=== PATIENT | female | born 1950 | race Caucasian/White ===

== ENCOUNTER 2023-12-20 12:26 | Day surgery (SDC) | payer MEDICARE, SELFPAY ==
[2023-12-14 15:42] VITALS: BMI 25.5
[2023-12-20 14:16] VITALS: BP 124/85; PULSE 86; RESP 16; TEMP 36.1; O2SAT 99
[2023-12-20] MEDS: Lactated Ringers 1,000 ML 100 ML IVCONT (14:35)
--- NOTE | 2023-12-20 14:43 | ECG_ITS ---
Test Reason : preop, bbb Blood Pressure : / mmHG Vent. Rate : 084 BPM Atrial Rate : 084 BPM P-R Int : 174 ms QRS Dur : 146 ms QT Int : 412 ms P-R-T Axes : 040 -81 011 degrees QTc Int : 486 ms Normal sinus rhythm Left axis deviation Right bundle branch block Abnormal ECG No previous ECGs available Referred By: Rosita Alford Electronically Signed By:Thomas Fenton
--- NOTE | 2023-12-20 14:58 | PC.NURSE ---
EKG rhythm strip showing NSR with BBB, no previous history known per patient. 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 Dr. Alford anesthesiologist notified via [employer]. no old EKG to compare. 12 lead EKG ordered. results given to Dr. Alford. no new orders at this time.
--- NOTE | 2023-12-20 15:50 | PC.NURSE ---
patient moved to pacu bed 15 awaiting procedure. Report given to Chino Greco RN.
--- NOTE | 2023-12-20 16:50 | HO.ANESPROP2 ---
Documented by User: Cristy Lizama NP 12/19/23 13:54 HPI - Anesthesia Eval Consult details Narrative: 73yo F for Left Inferior Rectus Eye Muscle Recession,Right Inferior Oblique Medically optimized [facility] Past Medical History Medical History (Updated 12/14/23 @ 15:39 by Aviva Waters, RN) Osteoporosis HTN (hypertension) Surgical History Surgical History (Updated 12/14/23 @ 15:39 by Aviva Waters, [facility]) Hx of colonoscopy Hx of bilateral cataract extraction History of Social History Social History Are you a primary critical care transport nurse to a significant other at home: No Do you presently have visiting nurse or other home services: No Patient Tobacco Use Status: Never used Tobacco Use of substances other than those prescribed or required for medical reasons: No Have you been hit, kicked, punched, or otherwise hurt by someone within the past year? If so, by whom?: No Are you DNR?: No Advance Directives: No Advance Directives Information Provided: Yes Advance Directives on File: No Nutrition Risks: No Nutritional Risk Poor oral hygiene: No Meds Allergies Allergy/AdvReac Type Severity Reaction Status Date / Time No Known Allergies Allergy Verified 12/14/23 15:39 Home Medications ?Medication ?Instructions ?Recorded ?Confirmed ?Last Taken ?Type alendronate 70 mg tablet (Fosamax) 70 mg PO QWEEK 12/14/23 12/14/23 Unknown History calcium carbonate (Calcium 600) 1,200 mg PO DAILY 12/14/23 12/14/23 Unknown History cholecalciferol (vitamin D3) 50 50 mcg PO DAILY 12/14/23 12/14/23 Unknown History mcg (2,000 unit) capsule (Vitamin D3) losartan 25 mg tablet 25 mg PO DAILY 12/14/23 12/14/23 Unknown History multivitamin with minerals 1 tab PO DAILY 12/14/23 12/14/23 Unknown History (Hair,Skin and Nails tablet) Exam Height,Weight and Vital Signs: Height 5 ft 6 in Weight 71.668 kg Assessment and Plan Assessment Anesthesia Assessment: Chart Reviewed Documented by User: Rosita Alford, DO 12/20/23 17:10 HPI - Anesthesia Eval Consult details Narrative: 73yo F for Left Inferior Rectus Eye Muscle Recession,Right Inferior Oblique Medically optimized [facility] Past Medical History Medical History (Updated 12/14/23 @ 15:39 by Aviva Waters, RN) Osteoporosis HTN (hypertension) Family History Family history of problems with anesthesia: No Surgical History Surgical History (Updated 12/14/23 @ 15:39 by Aviva Waters, RN) Hx of colonoscopy Hx of bilateral cataract extraction History of History of Problems with Anesthesia: No Social History Social History Are you a primary critical care transport nurse to a significant other at home: No Do you presently have visiting nurse or other home services: No Patient Tobacco Use Status: Never used Tobacco Use of substances other than those prescribed or required for medical reasons: No Have you been hit, kicked, punched, or otherwise hurt by someone within the past year? If so, by whom?: No Are you DNR?: No Advance Directives: No Advance Directives Information Provided: Yes Advance Directives on File: No Nutrition Risks: No Nutritional Risk Poor oral hygiene: No Meds Allergies Allergy/AdvReac Type Severity Reaction Status Date / Time No Known Allergies Allergy Verified 12/14/23 15:39 Home Medications ?Medication ?Instructions ?Recorded ?Confirmed ?Last Taken ?Type alendronate 70 mg tablet (Fosamax) 70 mg PO QWEEK 12/14/23 12/14/23 Unknown History calcium carbonate (Calcium 600) 1,200 mg PO DAILY 12/14/23 12/14/23 Unknown History cholecalciferol (vitamin D3) 50 50 mcg PO DAILY 12/14/23 12/14/23 Unknown History mcg (2,000 unit) capsule (Vitamin D3) losartan 25 mg tablet 25 mg PO DAILY 12/14/23 12/14/23 Unknown History multivitamin with minerals 1 tab PO DAILY 12/14/23 12/14/23 Unknown History (Hair,Skin and Nails tablet) Exam Exam Date and Time: December 20, 2023 1650 Height,Weight and Vital Signs: Height 5 ft 6 in Weight 71.668 kg Vital Signs Temperature 97.0 F 12/20/23 14:16 Pulse Rate 86 12/20/23 14:16 Respiratory Rate 16 12/20/23 14:16 Blood Pressure 124/85 12/20/23 14:16 Pulse Oximetry 99 12/20/23 14:16 Oxygen Delivery Method Room Air 12/20/23 14:16 Temperature 97.0 F 12/20/23 14:16 Pulse Rate 86 12/20/23 14:16 Respiratory Rate 16 12/20/23 14:16 Blood Pressure 124/85 12/20/23 14:16 Pulse Oximetry 99 12/20/23 14:16 Oxygen Delivery Method Room Air 12/20/23 14:16 Airway Mallampati Class: II (small mouth) TM Dist: <=3cm Neck ROM: Full Loose/Missing/Broken Teeth: No (patient denies any loose or broken teeth) Heart: S1S2 Lungs: CTAB Assessment and Plan Assessment Anesthesia Assessment: Anesthesia Plan Discussed and Chart Reviewed Final Anesthetic Review Family History of Problems with Anesthesia: No History of Problems with Anesthesia: No NPO: Yes ASA Class: II and Emergency Final Preanesthetic Review: No Changes in Pt Med Stat, Meds/Allgs Chart Reviewed, Consent Obtained/Reviewed and Anes Risks/Benef Reviewed Patient Risk: Low Procedure Risk: Low Anesthetic Plan Anesthetic Plan: GA and Agree w/ Assess. and Plan Disposition: Standard PACU
[2023-12-20 17:50] VITALS: BP 124/77; PULSE 92; RESP 16; TEMP 36.6; O2SAT 98
--- NOTE | 2023-12-20 17:50 | HO.OPHTHAL ---
Ophthalmology Operative Note Date of Service: 12/20/23 Narrative: Diagnosis right superior oblique palsy. Procedures 1. Recession of left inferior rectus 4 mm 2. Recession of right inferior oblique. Surgeon Dr. Barajas. Anesthesia general. Complications none. The patient was brought to the operative room placed under general anesthesia. The eyes were prepped and draped in the usual sterile ophthalmic fashion. A lid speculum was placed in the left eye and a peritomy was created around the inferior rectus muscle. The muscle was hooked and dissected free of its overlying fascial attachments and lid retractors. The muscle was then secured with a double-armed Vicryl suture and disinserted from the globe. It was reattached to a position 4 mm behind the original insertion. Conjunctiva was closed with interrupted Vicryl sutures. The lid speculum was moved to the right eye and a peritomy was created from the 04:00 o'clock to the 09:00 o'clock positions. The inferior and lateral rectus muscles were placed on large muscle hooks and the inferior oblique carefully identified and grasped with 2 small tenotomy hooks. The muscle was transferred to the large muscle hooks and grasped near its insertion with a curved mosquito. It was then disinserted from the globe and reattached to a position 4 mm posterior and 2 mm temporal to the temporal insertion of the inferior rectus muscle. Conjunctiva was closed with interrupted Vicryl sutures. The patient was then awoken from general anesthesia and discharged to postoperative recovery in good condition
[2023-12-20 17:55] VITALS: BP 121/78; PULSE 80; RESP 16; O2SAT 97
[2023-12-20 18:00] VITALS: BP 128/77; PULSE 76; RESP 16; O2SAT 96
[2023-12-20 18:05] VITALS: BP 122/82; PULSE 72; RESP 18; O2SAT 99
[2023-12-20 18:20] VITALS: BP 117/87; PULSE 74; RESP 18; TEMP 36.4; O2SAT 98
== END 2023-12-20 18:40 | disposition home or self-care (01) ==
PROVIDERS: PCP Internal Medicine; Visit Provider Ophthalmology
PROC: (CPT 67316; principal; 2023-12-20 14:30)
DX: H49.11 Fourth [trochlear] nerve palsy, right eye (principal); H53.2 Diplopia; I10 Essential (primary) hypertension; M81.0 Age-related osteoporosis without current pathological fracture; E55.9 Vitamin D deficiency, unspecified
CPT/HCPCS: 67316; 93005; J1100; J1596; J1885; J2405; J2704; J3010

== ENCOUNTER → 2023-12-20 14:43 | Outpatient (BNV) | payer MEDICARE, SELFPAY | PROVIDERS: PCP Internal Medicine; Visit Provider Internal Medicine Cardiovascular Disease | DX: R94.31 Abnormal electrocardiogram [ECG] [EKG] (principal) | CPT/HCPCS: 93010 ==